=== PATIENT | female | born 1960 | race Caucasian/White ===

== ENCOUNTER → 2017-06-16 09:50 | Outpatient (CLI) | payer BC ==
[2010-06-10 10:16] VITALS: BMI 23.9
== END | disposition home or self-care (01) ==
LOC: D.MAMMO 09:50
DX: Z12.31 Encounter for screening mammogram for malignant neoplasm of breast (principal)

== ENCOUNTER → 2017-08-26 13:44 | Outpatient (CLI) | payer BC ==
[2010-06-10 10:16] VITALS: BMI 23.9
== END | disposition home or self-care (01) ==
LOC: D.MAMMO 09:00
DX: R92.8 Other abnormal and inconclusive findings on diagnostic imaging of breast (principal)

== ENCOUNTER → 2017-09-25 12:34 | Outpatient (CLI) | payer BC ==
[2010-06-10 10:16] VITALS: BMI 23.9
== END | disposition home or self-care (01) ==
LOC: D.MAMMO 08:00
DX: N60.02 Solitary cyst of left breast (principal)